=== PATIENT | male | born 1950 | race Caucasian/White ===

== ENCOUNTER 2023-11-03 03:55 | Day surgery (SDC) | payer OTHER, BC ==
[2023-10-30 15:46] VITALS: BMI 23.2
[~2023-11-03 03:55] MED LIST: ceFAZolin SODIUM 1 GM VIAL IVPB ONE
[2023-11-03] MEDS ORDERED: ONDANSETRON 4 MG/2 ML VIAL ONE ×2 (09:45→09:48)
[2023-11-03] MEDS ORDERED: ceFAZolin SODIUM 1 GM VIAL ONE ×2 (09:45→09:48)
[2023-11-03] MEDS ORDERED: MIDAZOLAM HCL 2 MG/2 ML SINGLE DOSE VIAL ONE (09:48)
[2023-11-03] MEDS ORDERED: ceFAZolin SODIUM 1 GM VIAL IVPB ONE (09:49)
[2023-11-03] MEDS ORDERED: ELECTROLYTE-148 SOLN 1,000 ML IV SCH (10:00)
[2023-11-03] MEDS ORDERED: KETOROLAC TROMETHAMINE 30 MG/1 ML VIAL ONE (10:04)
[2023-11-03 10:40] VITALS: RESP 16
[2023-11-03 11:41] VITALS: BP 142/78; PULSE 70; TEMP 96.8
== END 2023-11-03 11:50 | disposition home or self-care (01) ==
LOC: JASU-SURG 03:55
PROVIDERS: ATTEND Urology
PROC: 0TF4XZZ Fragmentation in Left Kidney Pelvis, External Approach (ICD-10-PCS; principal; 2023-11-03 09:30)
DX: N20.0 Calculus of kidney (principal)

== ENCOUNTER 2023-11-25 04:53 | Day surgery (SDC) | payer OTHER, BC ==
[2023-11-05 13:00] VITALS: BMI 23.2
[2023-11-25] MEDS ORDERED: MIDAZOLAM HCL 2 MG/2 ML SINGLE DOSE VIAL ONE (14:07)
[2023-11-25] MEDS ORDERED: LIDOCAINE HCL/PF 2% SDV 5ML VIAL ONE (14:07)
[2023-11-25] MEDS ORDERED: DEXAMETHASONE SOD PHOSPHATE 4 MG/1 ML VIAL ONE (14:07)
[2023-11-25] MEDS ORDERED: PROPOFOL 20 ML ONE ×2 (14:07→15:01)
[2023-11-25] MEDS ORDERED: ONDANSETRON 4 MG/2 ML VIAL ONE (14:07)
[2023-11-25] MEDS ORDERED: ACETAMINOPHEN 1000 MG/100 ML BAG IVPB PRN (14:17)
[2023-11-25] MEDS ORDERED: oxyCODONE HCL 5 MG TABLET PO PRN (14:17)
[2023-11-25] MEDS ORDERED: PROMETHAZINE HCL 25 MG/1 ML VIAL IVPB PRN (14:17)
[2023-11-25] MEDS ORDERED: ONDANSETRON 4 MG/2 ML VIAL IVPUSH PRN (14:17)
[2023-11-25] MEDS ORDERED: LACTATED RINGERS SOLUTION 1,000 ML IV SCH (14:30)
[2023-11-25] MEDS ORDERED: ceFAZolin SODIUM 1 GM VIAL ONE (14:31)
[2023-11-25] MEDS ORDERED: ceFAZolin SODIUM 1 GM VIAL IVPB ONE (14:36)
[2023-11-25] MEDS ORDERED: ACETAMINOPHEN INJECTION 100 ML IVPB ONE (15:34)
[2023-11-25] MEDS ORDERED: ACETAMINOPHEN 1000 MG/100 ML BAG IVPB ONE (15:36)
[2023-11-25 16:58] VITALS: BP 143/90; PULSE 70; TEMP 97.3
[2023-11-25 17:00] VITALS: RESP 18
[2023-12-04 06:06] LABS: CA OXALATE MONOHYDR. 10 % (.); SIZE 7x6 mm (.); URIC ACID 90 % (.); WEIGHT 2337 mg (.)
== END 2023-11-25 16:56 | disposition home or self-care (01) ==
LOC: JASU-SURG 04:53
PROVIDERS: ATTEND Urology
PROC: 0TCB8ZZ Extirpation of Matter from Bladder, Via Natural or Artificial Opening Endoscopic (ICD-10-PCS; principal; 2023-11-25 14:00)
DX: N21.0 Calculus in bladder (principal)
CPT/HCPCS: 36415; 82360; 88300-TC; 94760